=== PATIENT | female | born 2000 | race Caucasian/White ===

== ENCOUNTER 2020-12-12 20:18 | Emergency (ER) | payer BC ==
[2020-12-12] MEDS ORDERED: SODIUM CHLORIDE 0.9% 1,000 ML IV STA (21:39)
[2020-12-12] MEDS ORDERED: ONDANSETRON 4 MG/2 ML VIAL IVP STA (21:39)
[2020-12-12] MEDS ORDERED: PANTOPRAZOLE 40 MG/10 ML VIAL IVP STA (21:40)
--- NOTE | 2020-12-12 21:42 | ED ---
General Adult HPI - General Source: patient, RN notes reviewed Mode of arrival: ambulatory Limitations: no limitations <Silvestre Craven - Last Filed: 12/12/20 22:48> <Hermes Montgomery - Last Filed: 12/13/20 00:16> - General Chief complaint: Nausea/Vomiting/Diarrhea Stated complaint: Diahrrea Time Seen by Provider: 12/12/20 21:19 - History of Present Illness Initial comments: Patient is a 20-year-old female that presents to the emergency department complaining of nausea vomiting and diarrhea times one. She notes that she is only vomited once but has been nauseous and having a hard time finding appetite and keeping food down. She notes that she has been drinking Gatorade throughout the day to try to stay hydrated. She noted that she did have several bouts of bright red blood per rectum on movement and diarrhea but then noticed that it started to get more black in color which is when she decided to come into the emergency room to get evaluated. She denied any real abdominal pain is more cramping due to the diarrhea and nausea and vomiting. She was in no apparent distress or pain while sitting up in bed during exam and interview. She did state she tried taking Pepto-Bismol but 15 minutes later she vomited. She denied any chest pain shortness of breath headache constipation fever fatigue chills. (Silvestre Craven) - Related Data Allergies Allergy/AdvReac Type Severity Reaction Status Date / Time No Known Allergies Allergy Verified 12/12/20 23:32 Review of Systems ROS Other: All systems not noted in ROS Statement are negative. <Silvestre Craven - Last Filed: 12/12/20 22:48> ROS Other: All systems not noted in ROS Statement are negative. <Hermes Montgomery - Last Filed: 12/13/20 00:16> ROS Statement: Those systems with pertinent positive or pertinent negative responses have been documented in the HPI. Past Medical History Past Medical History: No Reported History History of Any Multi-Drug Resistant Organisms: None Reported Past Surgical History: No Surgical Hx Reported Past Psychological History: Depression Smoking Status: Never smoker Past Alcohol Use History: Occasional Past Drug Use History: Marijuana <Silvestre Craven - Last Filed: 12/12/20 22:48> General Exam Limitations: no limitations General appearance: alert, in no apparent distress, obese Head exam: Present: atraumatic, normocephalic, normal inspection Eye exam: Present: normal appearance, PERRL, EOMI. Absent: scleral icterus, conjunctival injection, periorbital swelling ENT exam: Present: normal exam, mucous membranes moist Neck exam: Present: normal inspection. Absent: tenderness, meningismus, lymphadenopathy Respiratory exam: Present: normal lung sounds bilaterally. Absent: respiratory distress, wheezes, rales, rhonchi, stridor Cardiovascular Exam: Present: regular rate, normal rhythm, normal heart sounds. Absent: systolic murmur, diastolic murmur, rubs, gallop, clicks GI/Abdominal exam: Present: soft, hypoactive bowel sounds. Absent: distended, tenderness, guarding, rebound, rigid Extremities exam: Present: normal inspection, full ROM, normal capillary refill. Absent: tenderness, pedal edema, joint swelling, calf tenderness Neurological exam: Present: alert, oriented X3, CN II-XII intact Psychiatric exam: Present: normal affect, normal mood Skin exam: Present: warm, dry, intact, normal color. Absent: rash <Silvestre Craven - Last Filed: 12/12/20 22:48> Course Vital Signs 12/12/20 12/12/20 21:08 23:58 Temperature 98.2 F 98.1 F Pulse Rate 102 H 82 Respiratory 20 18 Rate Blood Pressure 120/78 100/67 O2 Sat by Pulse 95 100 Oximetry Medical Decision Making - Lab Data Result diagrams: 12/12/20 22:11 12/12/20 22:11 <Silvestre Craven - Last Filed: 12/12/20 22:48> - Lab Data Result diagrams: 12/12/20 22:11 12/12/20 22:11 <Hermes Montgomery - Last Filed: 12/13/20 00:16> - Medical Decision Making 18-year-old female complaining of nausea vomiting and diarrhea times one. Labs, 1 L normal saline, 4 mg Zofran, 40 mg of pantoprazole, CT of the abdomen and pelvis with contrast ordered. Labs unremarkable, occult blood test positive. (Silvestre Craven) - Lab Data Lab Results 12/12/20 12/12/20 12/12/20 Range/Units 21:12 22:11 22:11 WBC 10.3 (3.8-10.6) k/uL RBC 4.20 (3.80-5.40) m/uL Hgb 12.4 (11.4-16.0) gm/dL Hct 38.8 (34.0-46.0) % MCV 92.3 (80.0-100.0) fL MCH 29.5 (25.0-35.0) pg MCHC 32.0 (31.0-37.0) g/dL RDW 13.5 (11.5-15.5) % Plt Count 259 (150-450) k/uL MPV 7.9 Neutrophils % 74 % Lymphocytes % 18 % Monocytes % 4 % Eosinophils % 2 % Basophils % 1 % Neutrophils # 7.6 (1.3-7.7) k/uL Lymphocytes # 1.9 (1.0-4.8) k/uL Monocytes # 0.4 (0-1.0) k/uL Eosinophils # 0.2 (0-0.7) k/uL Basophils # 0.1 (0-0.2) k/uL Sodium (137-145) mmol/L Potassium (3.5-5.1) mmol/L Chloride (98-107) mmol/L Carbon Dioxide (22-30) mmol/L Anion Gap mmol/L BUN (7-17) mg/dL Creatinine (0.52-1.04) mg/dL Est GFR (CKD-EPI)AfAm (>60 ml/min/1.73 sqM) Est GFR (CKD-EPI)NonAf (>60 ml/min/1.73 sqM) Glucose (74-99) mg/dL Calcium (8.4-10.2) mg/dL Total Bilirubin (0.2-1.3) mg/dL AST (14-36) U/L ALT (4-34) U/L Alkaline Phosphatase (38-126) U/L Total Protein (6.3-8.2) g/dL Albumin (3.5-5.0) g/dL Amylase (30-110) U/L Lipase (23-300) U/L Urine Color Yellow Urine Appearance Cloudy H (Clear) Urine pH 6.0 (5.0-8.0) Ur Specific [place] 1.033 (1.001-1.035) Urine Protein Trace H (Negative) Urine Glucose (UA) Negative (Negative) Urine Ketones Negative (Negative) Urine Blood Small H (Negative) Urine Nitrite Negative (Negative) Urine Bilirubin Negative (Negative) Urine Urobilinogen <2.0 (<2.0) mg/dL Ur Leukocyte Esterase Trace H (Negative) Urine RBC 3 (0-5) /hpf Urine WBC 2 (0-5) /hpf Ur Squamous Epith Cells 1 (0-4) /hpf Calcium Oxalate Crystal Many H (None) /hpf Urine Bacteria Rare H (None) /hpf Urine Mucus Moderate H (None) /hpf Urine HCG, Qual (Not Detectd) Stool Occult Blood (Negative) Coronavirus (PCR) Not Detected (Not Detectd) 12/12/20 12/12/20 12/12/20 Range/Units 22:11 22:11 22:11 WBC (3.8-10.6) k/uL RBC (3.80-5.40) m/uL Hgb (11.4-16.0) gm/dL Hct (34.0-46.0) % MCV (80.0-100.0) fL MCH (25.0-35.0) pg MCHC (31.0-37.0) g/dL RDW (11.5-15.5) % Plt Count (150-450) k/uL MPV Neutrophils % % Lymphocytes % % Monocytes % % Eosinophils % % Basophils % % Neutrophils # (1.3-7.7) k/uL Lymphocytes # (1.0-4.8) k/uL Monocytes # (0-1.0) k/uL Eosinophils # (0-0.7) k/uL Basophils # (0-0.2) k/uL Sodium 136 L (137-145) mmol/L Potassium 3.9 (3.5-5.1) mmol/L Chloride 104 (98-107) mmol/L Carbon Dioxide 24 (22-30) mmol/L Anion Gap 8 mmol/L BUN 10 (7-17) mg/dL Creatinine 0.54 (0.52-1.04) mg/dL Est GFR (CKD-EPI)AfAm >90 (>60 ml/min/1.73 sqM) Est GFR (CKD-EPI)NonAf >90 (>60 ml/min/1.73 sqM) Glucose 106 H (74-99) mg/dL Calcium 9.0 (8.4-10.2) mg/dL Total Bilirubin 0.4 (0.2-1.3) mg/dL AST 22 (14-36) U/L ALT 16 (4-34) U/L Alkaline Phosphatase 93 (38-126) U/L Total Protein 7.3 (6.3-8.2) g/dL Albumin 4.2 (3.5-5.0) g/dL Amylase 78 (30-110) U/L Lipase 105 (23-300) U/L Urine Color Urine Appearance (Clear) Urine pH (5.0-8.0) Ur Specific [place] (1.001-1.035) Urine Protein (Negative) Urine Glucose (UA) (Negative) Urine Ketones (Negative) Urine Blood (Negative) Urine Nitrite (Negative) Urine Bilirubin (Negative) Urine Urobilinogen (<2.0) mg/dL Ur Leukocyte Esterase (Negative) Urine RBC (0-5) /hpf Urine WBC (0-5) /hpf Ur Squamous Epith Cells (0-4) /hpf Calcium Oxalate Crystal (None) /hpf Urine Bacteria (None) /hpf Urine Mucus (None) /hpf Urine HCG, Qual Not Detected (Not Detectd) Stool Occult Blood Positive H (Negative) Coronavirus (PCR) (Not Detectd) Disposition <Silvestre Craven - Last Filed: 12/12/20 22:48> Is patient prescribed a controlled substance at d/c from ED?: No <Hermes Montgomery - Last Filed: 12/13/20 00:16> Clinical Impression: GI bleeding Disposition: HOME SELF-CARE Condition: Good Instructions (If sedation given, give patient instructions): Rectal Bleeding (ED) Referrals: Bryson Zazueta DO [Primary Care Provider] - 1-2 days Bautista Olivarez MD [STAFF PHYSICIAN] - 1-2 days
[2020-12-12 22:28] LABS: Basophils # (A) 0.1 k/uL (0-0.2); Basophils % (A) 1 %; Eosinophils # (A) 0.2 k/uL (0-0.7); Eosinophils % (A) 2 %; HCT 38.8 % (34.0-46.0); HGB 12.4 gm/dL (11.4-16.0); Lymphocytes # (A) 1.9 k/uL (1.0-4.8); Lymphocytes % (A) 18 %; MCH 29.5 pg (25.0-35.0); MCV 92.3 fL (80.0-100.0); Mean Platelet Volume 7.9; Monocytes # (A) 0.4 k/uL (0-1.0); Monocytes % (A) 4 %; Neutrophils # (A) 7.6 k/uL (1.3-7.7); Neutrophils % (A) 74 %; Platelet Count 259 k/uL (150-450); RDW 13.5 % (11.5-15.5); WBC 10.3 k/uL (3.8-10.6)
[2020-12-12 22:31] LABS: Appearance,Urine Cloudy (Clear); Bacteria,Urine Rare /hpf; Bilirubin,Urine Negative (Negative); Blood,Urine Small (Negative); Calcium Oxalate Crystals,Urine Many /hpf; Color,Urine Yellow; Glucose,Urine (UA) Negative (Negative); Ketones,Urine Negative (Negative); Leukocyte Esterase,Urine Trace (Negative); Mucus,Urine Moderate /hpf; Nitrite,Urine Negative (Negative); Protein,Urine Trace (Negative); RBC,Urine 3 /hpf (0-5); Specific Gravity,Urine 1.033 (1.001-1.035); Squamous Epithelial Cell,Urine 1 /hpf (0-4); Urobilinogen,Urine <2.0 mg/dL (<2.0); WBC,Urine 2 /hpf (0-5)
[2020-12-12 22:46] LABS: ALT 16 U/L (4-34); AST 22 U/L (14-36); African American GFR (CKD) >90 (>60 ml/min/1.73 sqM); Albumin 4.2 g/dL (3.5-5.0); Alkaline Phosphatase 93 U/L (38-126); Amylase 78 U/L (30-110); Anion Gap 8 mmol/L; Blood Urea Nitrogen 10 mg/dL (7-17); Carbon Dioxide 24 mmol/L (22-30); Chloride 104 mmol/L (98-107); Glucose 106 mg/dL (74-99); Lipase 105 U/L (23-300); Non-African American GFR(CKD) >90 (>60 ml/min/1.73 sqM); Potassium 3.9 mmol/L (3.5-5.1); Sodium 136 mmol/L (137-145); Total Bilirubin 0.4 mg/dL (0.2-1.3); Total Protein 7.3 g/dL (6.3-8.2)
--- NOTE | 2020-12-12 23:29 | CT ---
EXAMINATION TYPE: CT abdomen pelvis w con DATE OF EXAM: 12/12/2020 COMPARISON: None HISTORY: Abd Pain, Diarrhea CT DLP: 1549.20 mGycm Automated exposure control for dose reduction was used. CONTRAST: Performed with IV Contrast, patient injected with 100 mL of Isovue 300. Lung bases are clear. There is no pleural effusion. Heart size is normal. There is no pericardial eff usion. Liver spleen stomach pancreas gallbladder appear normal. The bile ducts are not dilated. There is no adrenal mass. Kidneys show satisfactory contrast opacification. There is no hydronephrosi s. Appendix is posterior and appears normal. Bladder distends smoothly. There is IUD noted in the lyudmila rine fundus. Uterus is anteverted. There is no evidence of a pelvic mass. There is no free fluid in t he pelvis. There is no mesenteric edema. There is no ascites or free air. There is no evidence of a bowel obstru ction. The lumbar vertebra have normal spacing and alignment. Posterior elements are intact. There is no com pression fracture. The bony pelvis appears intact. Hip joints appear normal. There is small posterior disc bulge at L5-S1. IMPRESSION: No significant abnormality of the abdomen and pelvis. Normal appendix.
[2020-12-13 00:05] VITALS: RESP 18
[2020-12-13 01:21] VITALS: BP 106/67; PULSE 83; TEMP 97.8
== END 2020-12-13 01:20 | disposition home or self-care (01) ==
LOC: EC 20:18
DX: K92.2 Gastrointestinal hemorrhage, unspecified (principal); Z20.822 Contact with and (suspected) exposure to COVID-19
CPT/HCPCS: 36415; 80053; 82150; 83690; 85025; 82272; 81001; 81025; 87635; 74177; 99284; 96374; 96375; 96361; J2405; C9113; Q9967

== ENCOUNTER 2020-12-25 09:04 | Emergency (ER) | payer BC ==
[2020-12-25 10:15] LABS: Appearance,Urine Cloudy (Clear); Bacteria,Urine Occasional /hpf; Bilirubin,Urine Negative (Negative); Blood,Urine Trace (Negative); Color,Urine Yellow; Glucose,Urine (UA) Negative (Negative); Ketones,Urine Negative (Negative); Leukocyte Esterase,Urine Large (Negative); Mucus,Urine Rare /hpf; Nitrite,Urine Negative (Negative); PH, Urine 6.5 (5.0-8.0); Protein,Urine Trace (Negative); RBC,Urine 4 /hpf (0-5); Specific Gravity,Urine 1.022 (1.001-1.035); Squamous Epithelial Cell,Urine 19 /hpf (0-4); Urobilinogen,Urine <2.0 mg/dL (<2.0); WBC,Urine 11 /hpf (0-5)
--- NOTE | 2020-12-25 10:16 | ED ---
Abdominal Pain HPI - General Chief Complaint: Abdominal Pain Stated Complaint: GI problem Time Seen by Provider: 12/25/20 09:09 Source: family Mode of arrival: ambulatory Limitations: no limitations - History of Present Illness Initial Comments: 20yo female presenting for diarrhea/constipation. pt states that that for the past 2 weeks she's had on and off diarrhea she states she is previously evaluated for it and discharge. She states her primary care provider has her on Bentyl. Patient states that it was seeming to work however yesterday she had a day. Diarrhea. Patient states she now feels like she has to go but can't. Patient denies any nausea vomiting fevers she states she has occasional cramping but no severe abdominal pain. Patient denies any current abdominal pain or cramping. Patient denies dysuria urgency frequency hematuria she's no additional complaints she denies concern for: Remaining review of system negative - Related Data Home Medications Medication Instructions Recorded Confirmed Sertraline [Zoloft] 50 mg PO DAILY 12/12/20 12/25/20 Dicyclomine [Bentyl] 10 mg PO TID-W/MEALS 12/25/20 12/25/20 Allergies Allergy/AdvReac Type Severity Reaction Status Date / Time No Known Allergies Allergy Verified 12/25/20 09:33 Review of Systems ROS Statement: Those systems with pertinent positive or pertinent negative responses have been documented in the HPI. ROS Other: All systems not noted in ROS Statement are negative. Past Medical History Past Medical History: No Reported History History of Any Multi-Drug Resistant Organisms: None Reported Past Surgical History: No Surgical Hx Reported Past Psychological History: Depression Smoking Status: Never smoker Past Alcohol Use History: Occasional Past Drug Use History: Marijuana General Exam - General Exam Comments Initial Comments: General: The patient is awake and alert, in no distress Eye: +3 mm pupils are equal, round and reactive to light, extra-ocular movements are intact. No nystagmus. There is normal conjunctiva bilaterally. No signs of icterus. Ears, nose, mouth and throat: There are moist mucous membranes and no oral lesions. Neck: The neck is supple, there is no tenderness or JVD. Cardiovascular: There is a regular rate and rhythm. No murmur, rub or gallop is appreciated. Respiratory: Lungs are clear to auscultation, respirations are non-labored, breath sounds are equal. No wheezes, stridor, rales, or rhonchi. Gastrointestinal: Soft, non-distended, non-tender abdomen without masses or organomegaly noted. There is no rebound or guarding present. Musculoskeletal: Normal ROM, no tenderness. Strength 5/5. Sensation intact. Radial pulses equal bilaterally 2+. Neurological: A&O x 3. CN II-XII intact grossly, There are no obvious motor or sensory deficits. Coordination appears grossly intact. Speech is normal. Skin: Skin is warm and dry and no rashes or lesions are noted. Psychiatric: Cooperative, appropriate mood & affect, normal judgment. Limitations: no limitations Course Vital Signs 12/25/20 09:05 Temperature 98 F Pulse Rate 80 Respiratory 20 Rate Blood Pressure 133/83 O2 Sat by Pulse 96 Oximetry Medical Decision Making - Medical Decision Making KUB wnl. abdomen soft nontender. no current diarrhea. states constipation. pt appears well nontoxic. this appears to be chronic on and off. concern IBS. recommend GI f/u. she states she is scheduled in 2-3 weeks with a GI physician. pt discharged appearing well, recommended bland diet for today/clear liquids. - Lab Data Lab Results 12/25/20 12/25/20 Range/Units 09:16 09:16 Urine Color Yellow Urine Appearance Cloudy H (Clear) Urine pH 6.5 (5.0-8.0) Ur Specific [place] 1.022 (1.001-1.035) Urine Protein Trace H (Negative) Urine Glucose (UA) Negative (Negative) Urine Ketones Negative (Negative) Urine Blood Trace H (Negative) Urine Nitrite Negative (Negative) Urine Bilirubin Negative (Negative) Urine Urobilinogen <2.0 (<2.0) mg/dL Ur Leukocyte Esterase Large H (Negative) Urine RBC 4 (0-5) /hpf Urine WBC 11 H (0-5) /hpf Ur Squamous Epith Cells 19 H (0-4) /hpf Urine Bacteria Occasional H (None) /hpf Urine Mucus Rare H (None) /hpf Urine HCG, Qual Not Detected (Not Detectd) Disposition Clinical Impression: Constipation Disposition: HOME SELF-CARE Condition: Good Instructions (If sedation given, give patient instructions): Irritable Bowel Syndrome (ED), Constipation (ED) Additional Instructions: Please use medication as discussed. Please follow-up with family doctor in the next 2 days. Please return to emergency room if the symptoms increase or worsen or for any other concerns. Is patient prescribed a controlled substance at d/c from ED?: No Referrals: None,Stated [Primary Care Provider] - 1-2 days Bautista Olivarez MD [STAFF PHYSICIAN] - 1-2 days Time of Disposition: 10:33
--- NOTE | 2020-12-25 10:25 | XR ---
KUB HISTORY: Constipation, lower abdominal pain Frontal KUB submitted on [address] images [address] to CT scan 12/12/2020 Lung bases are clear. There is no evident bowel obstruction, pneumoperitoneum, or pathologic calcific ation. Intrauterine contraceptive device is noted in the pelvis. There is some retained fecal debris noted within the colon. IMPRESSION: Nonspecific findings
[2020-12-25 10:52] VITALS: BP 121/74; PULSE 78; RESP 16; TEMP 98.2
== END 2020-12-25 10:51 | disposition home or self-care (01) ==
LOC: EC 09:04
DX: K59.00 Constipation, unspecified (principal); F32.9 Major depressive disorder, single episode, unspecified; F12.90 Cannabis use, unspecified, uncomplicated; Z79.899 Other long term (current) drug therapy
CPT/HCPCS: 74018; 81001; 81025; 99284

== ENCOUNTER → 2021-01-04 | Outpatient (CLI) | payer BC ==
[2021-01-04 19:23] LABS: Basophils # (A) 0.04 X 10*3/uL (0.00-0.10); Basophils % (A) 0.4 %; Eosinophils # (A) 0.11 X 10*3/uL (0.04-0.35); Eosinophils % (A) 1.1 %; HCT 39.7 % (37.2-46.3); HGB 12.5 g/dL (12.0-15.0); Lymphocytes # (A) 2.18 X 10*3/uL (0.90-5.00); Lymphocytes % (A) 22.7 %; MCH 29.8 pg (27.0-32.0); MCHC 31.5 g/dL (32.0-37.0); MCV 94.7 fL (80.0-97.0); Mean Platelet Volume 11.5 fL (9.5-12.2); Monocytes # (A) 0.86 X 10*3/uL (0.20-1.00); Neutrophils # (A) 6.38 X 10*3/uL (1.80-7.70); Neutrophils % (A) 66.5 %; Platelet Count 250 X 10*3/uL (140-440); RBC 4.19 X 10*6/uL (4.10-5.20); RDW 13.2 % (11.5-14.5)
[2021-01-04 22:02] LABS: Albumin 4.6 g/dL (3.80-4.90); Albumin/Globulin Ratio 1.53 (1.60-3.17); Anion Gap 10.5 mmol/L (4.00-12.00); C Reactive Protein 0.7 mg/dL (0.0-0.8); Calcium 9.4 mg/dL (8.7-10.3); Carbon Dioxide 23.5 mmol/L (21.6-31.8); Non-African American GFR(CKD) 129.4 (60.0-200.0); Potassium 4.2 mmol/L (3.5-5.5); Total Bilirubin 0.3 mg/dL (0.3-1.2); Total Protein 7.6 g/dL (6.2-8.2)
[2021-01-04 22:51] LABS: Erythrocyte Sedimentation Rate 32 mm/Hr (0-20)
== END | disposition home or self-care (01) ==
LOC: LABWHC1 14:07
PROVIDERS: ATTEND Physician Assistant
DX: R19.7 Diarrhea, unspecified (principal)
CPT/HCPCS: 36415; 80053; 83516; 85025; 85652; 86140

== ENCOUNTER 2021-01-28 09:19 | Day surgery (SDC) | payer BC ==
[2021-01-26 10:57] VITALS: BMI 38.6
[~2021-01-28 09:19] MED LIST: LACTATED RINGERS 1,000 ML IV SCH
[2021-01-28] MEDS ORDERED: LIDOCAINE 1% (10MG/ML) FOR IV START INTRADERMA ONE (10:00)
[2021-01-28 10:03] VITALS: TEMP 98.9
[2021-01-28] MEDS ORDERED: PROPOFOL 10 MG/ML 20 ML VIAL IV ONE (10:43)
--- NOTE | 2021-01-28 11:11 | P.PCN ---
Date of Procedure: 01/28/21 Description of Procedure: Brief history: Patient is a pleasant 20-year-old female presenting for outpatient EGD and colonoscopy for evaluation of abnormal findings in the serum and diarrhea. The patient had been seen in the outpatient setting reporting symptoms of diarrhea for about 6 months. Patient had associated rectal bleeding with multiple episodes of bright red blood per rectum. No family history of colon cancer or IBD reported. Procedure performed: Esophagogastroduodenoscopy with biopsy Colonoscopy with biopsy Estimated blood loss: Minimal. Preoperative diagnosis: Abnormal findings in the serum, celiac disease, diarrhea, no prior EGD or colonoscopy [place] [facility] [place]: After informed consent was obtained from the patient was brought into the endoscopy unit and IV sedation was administered by anesthesia under continuous monitoring. Initially upper endoscopy was done. The Olympus GF 190 video endoscope was inserted into the mouth and esophagus intubated without any difficulty and was gradually advanced into the stomach and duodenum and carefully examined. The bulb and second part of the duodenum appeared normal, with no villous blunting or scalloping noted with multiple biopsies taken. The scope was then withdrawn into the stomach adequately insufflated with air and upon careful examination the antrum and body, cardia and fundus appeared normal, with biopsies of antrum and body taken. The scope was then withdrawn into the esophagus. The GE junction was located at 37 cm to the incisors. It appeared regular with no erythema erosions or ulcerations. Rest of the esophagus appeared normal, with lower esophageal biopsies taken. Patient tolerated the procedure well. At this time the patient continued to remain sedation. Initial digital rectal examination was normal. Olympus CF 190 video colonoscope was then inserted into the rectum and gradually advanced to the cecum without any difficulty. Careful examination was performed as the scope was gradually being withdrawn. The prep was excellent. The cecum, ascending colon, transverse colon, descending colon, sigmoid colon and rectum appeared normal with random biopsies taken of the right and left colon in the setting of diarrhea and altered bowel function. The terminal ileum was intubated and appeared normal with biopsies taken. Retroflexion was performed in the rectum and no lesions were noted, low-grade internal hemorrhoids were seen. Patient tolerated the procedure well. Impression: 1. Normal upper endoscopy with no erythema, ulcerations or other abnormalities noted. Biopsies taken of the duodenum, antrum body and lower esophagus. 2. Internal hemorrhoids. Otherwise normal-appearing colon from rectum to cecum with normal-appearing terminal ileum and biopsies taken of the terminal ileum, right colon and left colon. Recommendations: Findings of this examination were discussed with the patient as well as Her family. Okay to resume diet. Okay to resume medications. Await pathology from biopsies. Follow up in the GI clinic on 02/04/21 as previously scheduled for results of biopsies and further management.
[2021-01-28 11:19] VITALS: RESP 18
[2021-01-28 11:29] VITALS: PULSE 75
[2021-01-28 11:41] VITALS: BP 97/54
== END 2021-01-28 11:52 | disposition home or self-care (01) ==
LOC: ORWHC2ENDO 09:19
PROVIDERS: ATTEND Internal Medicine
DX: D72.820 Lymphocytosis (symptomatic) (principal); K31.89 Other diseases of stomach and duodenum; K29.50 Unspecified chronic gastritis without bleeding; R10.9 Unspecified abdominal pain; K21.9 Gastro-esophageal reflux disease without esophagitis; K64.8 Other hemorrhoids; K62.5 Hemorrhage of anus and rectum; Z79.899 Other long term (current) drug therapy
CPT/HCPCS: 88305; 45380; 43239; J2704

== ENCOUNTER → 2021-02-03 | Outpatient (CLI) | payer BC ==
[2021-02-03 20:49] LABS: Basophils # (A) 0.02 X 10*3/uL (0.00-0.10); Basophils % (A) 0.2 %; Eosinophils # (A) 0.06 X 10*3/uL (0.04-0.35); Eosinophils % (A) 0.7 %; HCT 38.8 % (37.2-46.3); HGB 12.2 g/dL (12.0-15.0); Lymphocytes # (A) 1.83 X 10*3/uL (0.90-5.00); Lymphocytes % (A) 19.9 %; MCH 30.2 pg (27.0-32.0); MCHC 31.4 g/dL (32.0-37.0); Mean Platelet Volume 11.3 fL (9.5-12.2); Monocytes # (A) 0.65 X 10*3/uL (0.20-1.00); Monocytes % (A) 7.1 %; Neutrophils # (A) 6.62 X 10*3/uL (1.80-7.70); Neutrophils % (A) 71.9 %; Platelet Count 240 X 10*3/uL (140-440); RBC 4.04 X 10*6/uL (4.10-5.20); RDW 13.1 % (11.5-14.5)
[2021-02-04 15:40] LABS: Gliadin AB IgA, Deaminated POSITIVE (NEGATIVE); Gliadin AB IgA, Unit 17.7 U/mL; Gliadin AB IgG, Deaminated POSITIVE (NEGATIVE)
[2021-02-04 16:06] LABS: % Iron Saturation 39.47 (12.00-45.00); ALT 14 U/L (8-44); AST 18 U/L (13-35); Albumin/Globulin Ratio 1.53 (1.60-3.17); Alkaline Phosphatase 85 U/L (41-126); BUN/Creat Ratio 18.33 Ratio (12.00-20.00); Calcium 9.6 mg/dL (8.7-10.3); Carbon Dioxide 20.6 mmol/L (21.6-31.8); Chloride 102 mmol/L (96-109); Glucose 83 mg/dL (70-110); Iron 135 ug/dL (50-170); Non-African American GFR(CKD) 129.4 (60.0-200.0); Potassium 4.4 mmol/L (3.5-5.5); Sodium 139 mmol/L (135-145); Total Bilirubin 0.7 mg/dL (0.3-1.2); Total Iron Binding Capacity 342 ug/dL (228-460); Total Protein 7.6 g/dL (6.2-8.2)
[2021-02-04 16:16] LABS: Ferritin 47.7 ng/mL (10.0-291.0)
[2021-02-04 16:17] LABS: Folate, Serum >24.0 ng/mL
== END | disposition home or self-care (01) ==
LOC: LABWHC1 13:40
PROVIDERS: ATTEND Physician Assistant
DX: K90.0 Celiac disease (principal)
CPT/HCPCS: 36415; 80053; 82306; 82607; 82728; 82746; 83516; 83540; 83550; 85025